=== PATIENT | female | born 1985 | race African-American/Black ===

== ENCOUNTER 2016-09-06 14:21 | Emergency (ER) | payer MEDICARE, MEDICAID ==
[2016-09-06 15:31] LABS: BASOPHILS 0.2 % (0.0-2.0); EOSINOPHILS 2.7 % (0-7); HEMATOCRIT 36.8 % (36.0-48.0); HEMOGLOBIN 12.5 g/dL (12-16); IMMATURE GRANULOCYTES 0.3 % (0-5); MCH 26.9 pg (26.0-34.0); MCV 79.1 fL (80.0-100.0); MEAN PLATELET VOLUME 10.9 fL (7.4-10.4); MONOCYTES 6.6 % (2-11); NEUTROPHILS 68.2 % (40-80); RBC 4.65 10x6/uL (4.00-5.40); RDW 13.2 % (11.5-14.5); WBC 12.7 10x3/uL (4.8-10.8)
[2016-09-06 15:40] LABS: PLATELET COUNT 261 10x3/uL (130-400)
[2016-09-06 15:50] LABS: ALBUMIN 3.8 g/dL (3.4-5.0); ALKALINE PHOSPHATASE 59 U/L (46-116); ALT (SGPT) 24 U/L (10-68); BILIRUBIN - TOTAL 0.19 mg/dL (0.2-1.3); CALC OSMOLALITY 271 mosm/kg (275-300); CARBON DIOXIDE 25.3 mmol/L (21.0-32.0); CHLORIDE - SERUM 103 mmol/L (98-107); CREATININE - SERUM 0.7 mg/dL (0.6-1.3); GLUCOSE 102 mg/dL (74-106); POTASSIUM - SERUM 4.1 mmol/L (3.5-5.1); SODIUM 137 mmol/L (136-145); UREA NITROGEN 8 mg/dL (7-18); eGFR NON AFRICAN AMERICAN > 90 mL/min (90-120)
[2016-09-06 18:17] LABS: HCG SERUM NEGATIVE (NEGATIVE)
[2016-09-06 22:35] LABS: APPEARANCE CLEAR (CLEAR); BILIRUBIN NEGATIVE (NEGATIVE); COLOR YELLOW (YELLOW); GLUCOSE NEGATIVE (NEGATIVE); KETONE NEGATIVE (NEGATIVE); LEUKOCYTE ESTERASE NEGATIVE (NEGATIVE); NITRITE NEGATIVE (NEGATIVE); PROTEIN NEGATIVE (NEGATIVE); SPECIFIC GRAVITY 1.025 (1.005-1.020); UROBILINOGEN NORMAL (NORMAL)
== END 2016-09-07 01:48 | disposition home or self-care (01) ==
LOC: D.ER 14:21
PROVIDERS: Emergency Medicine
DX: R10.2 Pelvic and perineal pain (principal); N76.0 Acute vaginitis; F41.9 Anxiety disorder, unspecified; J45.909 Unspecified asthma, uncomplicated; F31.9 Bipolar disorder, unspecified; F43.10 Post-traumatic stress disorder, unspecified

== ENCOUNTER 2016-10-04 13:14 | Emergency (ER) | payer MEDICARE | END 2016-10-04 14:36 | disposition home or self-care (01) | LOC: D.ER 13:14 | DX: R55 Syncope and collapse (principal); F41.9 Anxiety disorder, unspecified; J45.909 Unspecified asthma, uncomplicated; F31.9 Bipolar disorder, unspecified; F43.10 Post-traumatic stress disorder, unspecified ==

== ENCOUNTER → 2019-06-07 09:32 | Outpatient (CLI) | payer MEDICARE | END | disposition home or self-care (01) | LOC: D.US 08:30 | PROVIDERS: ATTEND Internal Medicine Gastroenterology | DX: R10.9 Unspecified abdominal pain (principal); R11.2 Nausea with vomiting, unspecified ==

== ENCOUNTER → 2019-09-03 08:35 | Outpatient (CLI) | payer MEDICARE, OTHER | END | disposition home or self-care (01) | LOC: D.CT 08-27 09:30 | PROVIDERS: ATTEND Internal Medicine Gastroenterology | DX: R10.817 Generalized abdominal tenderness (principal); R11.0 Nausea; R14.0 Abdominal distension (gaseous); K59.00 Constipation, unspecified ==

== ENCOUNTER → 2019-09-06 08:40 | Outpatient (CLI) | payer MEDICARE | END | disposition home or self-care (01) | LOC: D.NM 08:40 | PROVIDERS: ATTEND Internal Medicine Gastroenterology | DX: R10.817 Generalized abdominal tenderness (principal); R11.0 Nausea; R14.0 Abdominal distension (gaseous) ==

== ENCOUNTER 2019-11-11 05:42 | Day surgery (SDC) | payer MEDICARE ==
[~2019-11-11] VITALS: Ht 154.9 cm; Wt 65.3 kg
[~2019-11-11 05:42] MED LIST: ATARAX 25 MG TA25 MG PO; ELAVIL75 MG PO; LAMICTAL150 M1 PO; LINZESS145 MCG PO; LIVER AID PO; OMEPRAZOLE20 M1 PO; PROBIOTIC BLEN1 EACH PO
[2019-11-11 06:01] LABS: HEMOGLOBIN 12.8 g/dL (12-16); MCH 27.4 pg (26.0-34.0); MCHC 34.6 g/dL (31.0-37.0); MCV 79.1 fL (80.0-100.0); MEAN PLATELET VOLUME 9.9 fL (7.4-10.4); RBC 4.68 10x6/uL (4.00-5.40); RDW 13.7 % (11.5-14.5); WBC 13.9 10x3/uL (4.8-10.8)
[2019-11-11 06:40] VITALS: BP 102/65; Ht 154.9 cm; Wt 65.3 kg
--- NOTE | 2019-11-11 06:46 | NUR ---
POSITIVE SUICIDE RISK SCREEN. CALLED [employer] FINISHER TO INFORM HER OF NEED OF BEHAVIORAL HEALTH NURSE TO EVALUATE PT.
--- NOTE | 2019-11-11 06:47 | NUR ---
H&P NEEDS UPDATING. PAGED DR. JI TO INFORM. HE CALLED BACK AND INFORMED HIM. HE IS NOW AWARE.
--- NOTE | 2019-11-11 07:04 | NUR ---
PATIENT IN OUTPATIENT FOR A PROCEDURE, SHE HAS A HISTORY OF DEPRESSION AND ATTEMPTED SUICIDE 5 YEARS AGO. SHE IS NOT CURRENTLY SUICIDIAL. SHE HAS REASONS FOR LIVING FOR HER TWO BOYS. 1800 NUMBER GIVEN FOR FUTURE REFERENCE
[2019-11-11] MEDS ORDERED: HYDROCODON-ACE1 EAC7 PO (08:55)
--- NOTE | 2019-11-11 11:19 | NUR ---
DC INSTRUCTIONS GIVEN TO PT/SPOUSE. STATE UNDERSTANDING. PT IS CURRENTLY ATTEMPTING TO VOID. SPOUSE WITH HER IN BATHROOM ASSISTING HER NEEDED. WILL CONTINUE TO MONITOR.
--- NOTE | 2019-11-11 11:52 | NUR ---
PT VOIDED AT 1140. PT LEFT UNIT VIA WC AT 1152
== END 2019-11-11 11:52 | disposition home or self-care (01) ==
LOC: D.OPS 05:42 → D.PAN 08:00 → D.OPS 08:00
PROVIDERS: Anesthesiology; ATTEND Surgery
DX: K82.8 Other specified diseases of gallbladder (principal)

== ENCOUNTER 2020-02-28 07:45 | Emergency (ER) | payer MEDICARE ==
[2019-11-11 06:40] VITALS: Ht 154.9 cm; Wt 68.2 kg
[~2020-02-28] VITALS: Ht 154.9 cm; Wt 68.2 kg
[~2020-02-28 07:45] MED LIST changes: +HYDROCODON-ACE1 EAC7 PO
[2020-02-28 08:23] LABS: BASOPHILS 0.1 % (0-2); EOSINOPHILS 2.4 % (0-7); HEMATOCRIT 40.3 % (36.0-48.0); HEMOGLOBIN 13.7 g/dL (12-16); IMMATURE GRANULOCYTES 0.5 % (0-5); LYMPHOCYTES 30.4 % (15-50); MCH 27.2 pg (26.0-34.0); MEAN PLATELET VOLUME 10.4 fL (7.4-10.4); MONOCYTES 7.2 % (2-11); NEUTROPHILS 59.4 % (40-80); PLATELET COUNT 273 10x3/uL (130-400); RBC 5.04 10x6/uL (4.00-5.40); RDW 14.4 % (11.5-14.5); WBC 13.4 10x3/uL (4.8-10.8)
[2020-02-28 08:28] LABS: CALC OSMOLALITY 272 mosm/kg (275-300); CALCIUM 8.8 mg/dL (8.5-10.1); CARBON DIOXIDE 24.1 mmol/L (21.0-32.0); CHLORIDE - SERUM 103 mmol/L (98-107); CREATININE - SERUM 0.8 mg/dL (0.6-1.3); GLUCOSE 102 mg/dL (74-106); POTASSIUM - SERUM 4.1 mmol/L (3.5-5.1); SODIUM 137 mmol/L (136-145); UREA NITROGEN 11 mg/dL (7-18); eGFR NON AFRICAN AMERICAN 87 mL/min (90-120)
[2020-02-28 08:46] LABS: ALKALINE PHOSPHATASE 93 U/L (30-120); ALT (SGPT) 52 U/L (10-68); BILIRUBIN - TOTAL 0.12 mg/dL (0.2-1.3); CKMB 0.6 U/L (0.0-3.6); CREATINE KINASE 129 UL (21-215); PROTEIN - SERUM 7.7 g/dL (6.4-8.2); TROPONIN-I < 0.017 ng/mL (0.000-0.060)
[2020-02-28 09:13] LABS: UDS - AMPHET NEGATIVE QUAL (NEGATIVE); UDS - BARB NEGATIVE QUAL (NEGATIVE); UDS - BENZO NEGATIVE QUAL (NEGATIVE); UDS - COCAINE NEGATIVE QUAL (NEGATIVE); UDS - OPIATE NEGATIVE QUAL (NEGATIVE); UDS - PCP NEGATIVE QUAL (NEGATIVE); UDS - THC NEGATIVE QUAL (NEGATIVE)
[2020-02-28 09:34] LABS: BILIRUBIN NEGATIVE (NEGATIVE); KETONE NEGATIVE (NEGATIVE); NITRITE NEGATIVE (NEGATIVE); UROBILINOGEN NORMAL mg/dL (< 2)
[2020-02-28 09:36] LABS: BACTERIA FEW /HPF (NONE SEEN); EPITHELIAL CELLS RARE /hpf (0-5); WHITE CELLS - URINE OCC HPF (0-4)
[2020-02-28 10:52] VITALS: BP 120/82
== END 2020-02-28 11:07 | disposition home or self-care (01) ==
LOC: D.ER 07:45
PROVIDERS: Family Medicine
DX: G40.909 Epilepsy, unspecified, not intractable, without status epilepticus (principal); K21.9 Gastro-esophageal reflux disease without esophagitis; K76.0 Fatty (change of) liver, not elsewhere classified; F17.210 Nicotine dependence, cigarettes, uncomplicated